=== PATIENT | male | born 2000 | race Caucasian/White ===

== ENCOUNTER 2018-09-07 15:25 | Emergency (ER) | payer OTHER, SELFPAY ==
[2018-09-07 15:27] VITALS: BP 131/63; PULSE 113; RESP 14; TEMP 36.6; O2SAT 99
--- NOTE | 2018-09-07 15:42 | ED.ANXIETY ---
HPI - Anxiety General Chief Complaint: Dizziness Stated Complaint: Syncope Time Seen by Provider: 09/07/18 15:28 Source: patient and EMS Mode of arrival: ambulatory Limitations: no limitations History of Present Illness HPI narrative: Patient is a 18-year-old male walking in with EMS presenting with lightheadedness. He just had lunch of a BLT sandwich. He was driving in his car when he suddenly felt like he could not take a deep breath. He got dizzy and lightheaded and pulled over the side of the road. He did not pass out he really did not have any chest pain. He smokes marijuana 2 bowls nightly. Denies cigarette smoking. He has not had any fever productive cough. He tried to take some deep breath but did not really feel like he was taking a deep breath. He started getting some numbness and tingling in his extremities as well as time went on. He does seem calm and cooperative at this time. MD complaint: shortness of breath Onset (ago): minute(s) Symptoms: dyspnea and extremity numbness/tingling Relieving factors: deep breaths Related Data Allergies Allergy/AdvReac Type Severity Reaction Status Date / Time No Known Drug Allergies Allergy Verified 09/07/18 15:27 Review of Systems Review of Systems ROS Unobtainable: All systems reviewed & are unremarkable except as noted in HPI and below Constitutional Denies chills, Denies fever(s), Denies lethargy and Denies weakness Eyes Denies change in vision, Denies eye discharge, Denies irritation and Denies loss of vision ENT Ears, Nose, Mouth, and Throat: Denies throat swelling Cardiovascular Denies chest pain, Denies syncope, Denies irregular heart rhythm, Reports lightheadedness, Denies palpitations, Reports dyspnea and Denies orthopnea Respiratory Reports as per HPI, Reports dyspnea and Denies wheezing Gastrointestinal Gastrointestinal: Denies abdominal pain, Denies change in bowel habits, Denies diarrhea, Denies nausea and Denies vomiting Genitourinary Denies hematuria, Denies flank pain, Denies urinary incontinence and Denies urinary urgency Musculoskeletal Denies back pain, Denies muscle weakness, Denies numbness and Denies tingling Integumentary/Breasts Denies pruritus, Denies erythema, Denies rash and Denies wounds Neurologic Denies syncope, Denies loss of vision, Denies numbness, Denies tingling and Denies weakness Endocrine Denies palpitations Hematologic/Lymphatic Denies easy bruising Allergic/Immunologic Denies urticaria, Denies throat swelling and Denies wheezing [facility] Medical History Patient denies significant medical history (Acute) Social History (Updated 09/07/18 @ 17:38 by Shelly Mueller DO) Smoking Status: Never smoker substance use type: marijuana Social History Smoking Status: Never smoker substance use type: marijuana Exam Initial Vital Signs Initial Vital Signs: Vital Signs Temperature 97.8 F 09/07/18 15:27 Pulse Rate 113 H 09/07/18 15:27 Respiratory Rate 14 09/07/18 15:27 Blood Pressure 131/63 09/07/18 15:27 Pulse Oximetry 99 09/07/18 15:27 GENERAL: Well-appearing young male and in [no acute] distress. HEENT: Head atraumatic,EOMI, pupils reactive, CARDIOVASCULAR: Regular rate and rhythm without murmurs, rubs or gallops. RESPIRATORY: Breath sounds equal bilaterally, no wheezes rales or rhonchi. ABDOMEN: Soft, nontender. Normoactive bowel sounds all 4 quadrants. No guarding or rebound. EXTREMITIES: Normal range of motion, no clubbing or edema. Neurovascularly intact NEUROLOGICAL: Alert and oriented x4.Normal gait and speech. Cranial nerves II through XII grossly intact. SKIN: Warm, dry, no laceration, no petechiae, no rashes or lesions. Scores PERC Score Age greater than or equal to 50 years: No Heart rate greater than or equal to 100 bpm: No Room Air O2 Sat less than 95%: No Unilateral leg swelling: No Recent trauma or surgery: No Hemoptysis: No Prior PE or DVT: No Hormone Use: No Total PERC Score: 0 Wells' Criteria for PE Clinical signs and symptoms of PE: No PE is #1 Dx or equally likely: No Heart rate > 100: No Immobilization at least 3 days or surg in previous 4 weeks: No History of PE or DVT: No Hemoptysis: No Malignancy w/Treatment within 6 months or palliative: No Wells' PE Score total: 0 Course Orders Ordered: ED Orders 09/07/18 15:29 EKG-12 Lead Stat 09/07/18 15:46 XR chest 2V Stat Discontinued Medications Albuterol/Ipratropium (Duoneb) 3 ml INH NOW ONE Stop: 09/07/18 15:54 Last Admin: 09/07/18 15:54 Dose: 3 ml Vital Signs - 8 hr 09/07/18 15:27 09/07/18 15:54 09/07/18 17:15 Temperature 97.8 F Pulse Rate 113 H 86 82 Respiratory Rate 14 16 16 Blood Pressure 131/63 Blood Pressure [Left Arm] 119/59 L Pulse Oximetry 99 99 100 MDM - Anxiety Lab Data Point of Care Testing Glucose POC 93 Imaging Data Chest x-ray: Radiologist's impression: PROCEDURE: XR CHEST 2V INDICATIONS: short of breath TECHNIQUE: 2 views of the chest were acquired. COMPARISON: None. FINDINGS: Surgical changes and devices: None. Lungs and pleura: Prominent perihilar interstitial markings are identified with focally prominent vague increased density within the right infrahilar region. No lobar consolidation, effusion, or pneumothorax is evident. Mediastinum: Mediastinal contours are normal. Heart size is normal. Bones and chest wall: No suspicious bony abnormalities. Soft tissues appear unremarkable. IMPRESSION: Possible right infrahilar atelectasis versus pneumonia. Please correlate clinically. Dictated by: Stone Motley M.D. on 09/07/2018 at 15:15 Approved by: Stone Motley M.D. on 09/07/2018 at 15 ECG Data Attestation: I personally reviewed and interpreted this ECG as follows: Prior ECG tracings: not available for review Interpretation: Normal sinus rhythm rate [address] changes or T-wave inversions with normal interval IL interval 154 QRS 86 and QT 393 Discharge Plan Departure Patient Disposition: Home Clinical Impression: Exacerbation of reactive airway disease Qualifiers: Asthma severity: mild Asthma persistence: persistent Qualified Code(s): J45.31 - Mild persistent asthma with (acute) exacerbation Instructions: Reactive Airway Disease-Adult Activity Restrictions/Additional Instructions: *You have been diagnosed with reactive airway disease *What to do: Airway spasm today is likely the cause of your lightheadedness and shortness of *Continue to take medications as directed Albuterol inhaler with spacer 1-2 puffs every 4 hours only if needed please carry with you at all times *Follow up with your primary care provider in 2-3 days *Return to ER if you should have increasing shortness of breath chest or any new, worsening or concerning symptoms Referrals: [facility] [Outside]
--- NOTE | 2018-09-07 15:46 | DI.RAD.S_ITS ---
PROCEDURE: XR CHEST 2V INDICATIONS: short of breath TECHNIQUE: 2 views of the chest were acquired. COMPARISON: None. FINDINGS: Surgical changes and devices: None. Lungs and pleura: Prominent perihilar interstitial markings are identified with focally prominent vague increased density within the right infrahilar region. No lobar consolidation, effusion, or pneumothorax is evident. Mediastinum: Mediastinal contours are normal. Heart size is normal. Bones and chest wall: No suspicious bony abnormalities. Soft tissues appear unremarkable. IMPRESSION: Possible right infrahilar atelectasis versus pneumonia. Please correlate clinically. Dictated by: Stone Motley M.D. on 09/07/2018 at 15:15 Approved by: Stone Motley M.D. on 09/07/2018 at 15:15
[2018-09-07 15:54] VITALS: PULSE 86; RESP 16; O2SAT 99
[2018-09-07] MEDS: ALBUTEROL/IPRATROPIUM 3 ML AMPUL INH (15:54)
--- NOTE | 2018-09-07 16:23 | PC.NURSE ---
Pt describes while driving he felt light headed and dizzy as if he was going to pass out so he pulled over. Patient admits to smoking marijuana last time was last night and then mushrooms a week ago. On arrival pt alert, oriented, comfortable, neuro test normal. Pt received breathing tx and is less short of breath.
[2018-09-07 17:15] VITALS: BP 119/59; PULSE 82; RESP 16; O2SAT 100
[2018-09-07 17:30] VITALS: BP 116/69; PULSE 80; RESP 17; O2SAT 95
[2018-09-07 18:00] VITALS: BP 120/64; PULSE 82; RESP 15; O2SAT 98
[2018-09-07] MEDS: ALBUTEROL HFA PREPACK 1 BOX MISC (18:19)
== END 2018-09-07 18:22 | disposition home or self-care (01) ==
PROVIDERS: Emergency Provider Emergency Medicine
DX: J45.31 Mild persistent asthma with (acute) exacerbation (principal); R55 Syncope and collapse; R06.00 Dyspnea, unspecified
CPT/HCPCS: 71046; 82962; 93005; 93010; 94640; 99283; 99284